=== PATIENT | female | born 1995 | race Caucasian/White ===

== ENCOUNTER 2023-10-17 16:19 | Emergency (ER) | payer BC ==
[~2023-10-17] VITALS: Ht 162.6 cm; Wt 54.5 kg
[2023-10-17 16:26] VITALS: BP 140/94; TEMP 98
[2023-10-17 17:50] VITALS: PULSE 86
== END 2023-10-17 17:52 | disposition home or self-care (01) ==
LOC: COL.ER 16:19
DX: S80.02XA Contusion of left knee, initial encounter (principal); S20.211A Contusion of right front wall of thorax, initial encounter; W01.0XXA Fall on same level from slipping, tripping and stumbling without subsequent striking against object, initial encounter; Y92.59 Other trade areas as the place of occurrence of the external cause; Y99.0 Civilian activity done for income or pay